=== PATIENT | female | born 1935 | race Caucasian/White ===

== ENCOUNTER 2023-04-01 13:00 | Emergency (ER) | payer OTHER, SELFPAY ==
[2023-04-01 13:01] VITALS: BP 158/113
[2023-04-01 13:14] VITALS: BP 155/59
[2023-04-01 14:00] VITALS: BP 142/68
--- NOTE | 2023-04-01 14:00 | ED.GENMED ---
History of Present Illness
General
Chief Complaint: Chest Pain
Source: patient
Exam Limitations: none
Time Seen by Provider: 04/01/23 13:35
Nursing documentation reviewed up to this point in time: agreed with
Travel History
Have you had any contact with someone who has COVID-19?: No
Do you have any symptoms of coronavirus? Fever > 100 degrees, chills, cough, shortness of breath, sore throat, loss of taste or smell, muscle aches, or headache?: No
History of Present Illness
History of Present Illness:
Patient is 87-year-old female who presents to the ER for evaluation. Patient reports she started with cough Fanta night and has been coughing since. She reports the cough was worse last night. She also has had pain to her anterior chest. She
denies any shortness of breath. She denies any fevers. She called her family doctor for evaluation but was sent here to the ER because she had chest pain. She has no cardiac history. She denies any radiation of pain. She reports her chest feels
sore and achy. She denies any arm pain. Denies any back.
Past History
Past History
ED Past Medical History: Hypercholesterolemia and Other (Diverticulitis)
ED Past Surgical History: Other (Kidney surgery)
Social History
Tobacco: Non-smoker
Alcohol: None
Drug: None
Personal:
Living: with family
Family History
Family History: Negative Diabetes, Hypertension or CAD
Review of Systems
Review of Systems
Allergies reviewed?: Yes
All Other Systems: ROS reviewed and negative except as documented in HPI and ROS
Constitutional: Reports no symptoms; Denies fever
Respiratory: Reports cough and trouble breathing
Cardiac: Reports chest pain (chest soreness ); Denies palpitations
ABD/GI: Reports no symptoms
: Reports no symptoms
Musculoskeletal: Reports no symptoms
Skin: Reports no symptoms
Neurological: Reports no symptoms
Psychiatric: Reports no symptoms
Phy Exam
General Physical Exam
General Presentation: no apparent distress
General age: appears stated age
General Skin: warm and dry
General Habitus: normal
General Mental: alert
General Hydration: appears well hydrated
Cardiovascular Exam
Cardiovascular Exam: regular rate/rhythm, no murmur and normal peripheral pulses
Pulmonary Exam
Pulmonary Exam: lungs clear, no respiratory distress and other (chest non tender )
Neurological Exam
Neurological Exam: alert and oriented x3
Musculoskeletal Exam
Musculoskeletal Exam: full ROM
Skin Exam
Skin Exam: normal color and warm/dry
Psychiatric Exam
Psychiatric Exam: normal mood/affect
Scores
Heart Score for Chest Pain Patients
STEMI patient?: Not applicable
Course
Orders/Labs/Results
Orders:
Orders
04/01/23 13:03
Electrocardiogram (*1) Urgent
Reason for Study: Chest Pain
EKG- Treatment ONCE
04/01/23 14:15
Cardiac Monitoring- Treatment ONCE
IV Insert/Care/Rem.- Treatment PRN
CR Chest - 2 Views Urgent
Comment:
Reason For Exam: cough/cp
04/01/23 14:23
COVID-19 Antigen Urgent
Source: Nasal Swab
Complete Blood Count/With Diff Urgent
Comprehensive Metabolic Panel Urgent
Troponin I Urgent
Influenza A+B Rapid Molecular Urgent
SYLVIA Source: Nasal Swab
Specimen Description:
Abnormal Lab Results
04/01/23
14:23
MCH 32.5 H pg
(27.0-31.0)
BUN 19 H mg/dl
(7-17)
Glucose 105 H mg/dl
(70-99)
Total Protein 6.1 L g/dl
(6.3-8.2)
02/01/24 14:23
04/01/23 14:23
Vital Signs
Initial and Last Documented VS:
Initial Vital Signs
Temp Pulse Resp BP Pulse Ox
99.0 F 65 18 158/113 95
04/01/23 13:01 04/01/23 13:01 04/01/23 13:01 04/01/23 13:01 04/01/23 13:01
Last Documented Vital Signs
Temp Pulse Resp BP Pulse Ox
99.0 F 59 15 105/64 95
04/01/23 13:01 04/01/23 15:00 04/01/23 15:00 04/01/23 15:00 04/01/23 15:00
MDM/Problems Addressed
Differential Diagnosis Includes:
Not limited to musculoskeletal chest pain, pneumonia, bronchitis, flu, COVID, less likely ACS
MDM/Problems Addressed:
Patient is afebrile female who presents for evaluation. Patient had a cough for the past several days and has had chest soreness with cough. She denies any shortness of breath. She has no cardiac history. She was sent for evaluation of chest
pain. Her lungs are clear she is nonhypoxic nontachypneic in no acute distress no acute findings on EKG normal cardiac troponin. Likely musculoskeletal soreness from cough. Patient is afebrile with normal white count negative COVID-negative flu
no acute findings on chest x-ray.
*Radiology
Radiology exam reviewed: radiology read reviewed
*Pulse Oximetry
Patient hypoxic: no
*Critical Care Note
Total Time (30-74mins, 75-104mins- exclusive of procedures): Not Applicable
ED Attending Note
-
Portions of this chart may have been created with voice recognition software.� Occasional wrong word or��sound alike� substitutions may have occurred due to the inherent limitations of voice recognition software.
Discharge Plan
Departure
Patient Disposition: Home (Routine Discharge)
Date of Disposition: 04/01/23
Time of Disposition: 16:00
Patient with high blood pressure during this ER visit?: Yes
Covid-19: Not Applicable
Discharge Problem:
Acute viral syndrome, Cough
Instructions: Cough, Adult (DC), Viral Syndrome (DC)
Prescriptions:
No Action
acyclovir 400 mg Tablet
400 mg PO BID
prednisolone acetate 1 % Drops,Suspension
1 drp BOTH EYES DAILY Qty: 0
escitalopram oxalate 10 mg Tablet
10 mg PO DAILY
brimonidine-timolol [Combigan] 0.2-0.5 % Drops
1 drp BOTH EYES BID Qty: 0
acetaminophen [acetaminophen] 325 mg tablet
650 mg PO Q4HPRN PRN (Reason: mild pain) Qty: 1 0RF
atorvastatin [Lipitor] 20 mg Tablet
20 mg PO QPM
calcium polycarbophil [FiberCon] 625 mg Tablet
626 mg PO BID
lutein 20 mg Capsule
20 mg PO DAILY
cholecalciferol (vitamin D3) [Vitamin D3] 25 mcg (1,000 unit) Tablet
25 mcg PO DAILY
Referrals:
Nan Yi DO [Family Provider] -
Activity Restrictions/Additional Instructions:
You may take Tylenol for pain as needed. Follow-up with your family doctor in the next several days and return if any worsening of symptoms
Interventions
Interventions:
*Risk Screen - Suicide Last Done: 04/01/23 13:01
*General Assessment Last Done: 04/01/23 13:01
*Neglect/Abuse Screening Last Done: 04/01/23 13:01
ED- Fall Risk Assessment Last Done: 04/01/23 14:20
*ED COVID-19 Vaccine History Last Done: 04/01/23 13:01
ED- Cardiac Assessment Last Done: 04/01/23 14:20
[2023-04-01 14:20] VITALS: BMI 25.6
[2023-04-01 14:40] LABS: % Basophils 0.6 % (0-2); % Eosinophils 1.8 % (0-6); % Immature Granulocytes 0.2 % (0-0.5); % Monocytes 7.1 % (1.7-9.3); % Neutrophils 66.3 % (42.2-75.2); Absolute Basophils 0.1 10^3/uL (0-0.2); Absolute Eosinophils 0.2 10^3/uL (0-0.7); Absolute Monocytes 0.6 10^3/uL (0.1-0.6); Absolute Neutrophils 5.4 10^3/uL (1.4-6.5); Hematocrit 39.4 % (37.0-47.0); Hemoglobin 13.9 g/dL (12.0-16.0); Mean Corp Hgb Conc. 35.3 g/dL (33.0-37.0); Mean Corpuscular Hgb 32.5 pg (27.0-31.0); Mean Corpuscular Volume 92.1 fL (81.0-99.0); Mean Platelet Volume 9.1 fL (7.4-10.4); Nucleated Red Blood Cells % 0 %; Platelet Count 173 10^3/uL (130-400); Red Blood Cell Count 4.28 10^6/uL (4.20-5.40); Red Cell Dist. Width 12.6 % (11.5-14.5); White Blood Cell Count 8.2 10^3/uL (4.8-10.8)
[2023-04-01 14:51] LABS: ALT (SGPT) 29 U/L (0-35); AST (SGOT) 27 U/L (14-36); Albumin 3.9 g/dl (3.5-5.0); Alkaline Phosphatase 85 U/L (38-126); Blood Urea Nitrogen 19 mg/dl (7-17); Carbon Dioxide 25 mmol/L (22-30); Chloride 107 mmol/L (98-107); Estimated Creatinine Clearance 55 ml/min; Glucose 105 mg/dl (70-99); Potassium 4.2 mmol/L (3.5-5.1); Sodium 139 mmol/L (135-145); Total Bilirubin 1.1 mg/dl (0.2-1.3); Total Protein 6.1 g/dl (6.3-8.2); eGFR > 60.00
[2023-04-01 14:59] LABS: COVID-19 Antigen Negative (Negative)
[2023-04-01 15:00] VITALS: BP 105/64
[2023-04-01 15:03] LABS: Troponin I < 0.012 ng/ml
[2023-04-01 16:17] VITALS: BP 99/56
== END 2023-04-01 16:21 | disposition home or self-care (01) ==
LOC: EMR 13:00
PROVIDERS: Nurse Practitioner; EMERGENCY PHYSICIAN Student in an Organized Health Care Education/Training Program; FAMILY PHYSICIAN Family Medicine
DX: B34.9 Viral infection, unspecified (principal); R05.9 Cough, unspecified; Z11.52 Encounter for screening for COVID-19; R03.0 Elevated blood-pressure reading, without diagnosis of hypertension; E78.00 Pure hypercholesterolemia, unspecified; K57.92 Diverticulitis of intestine, part unspecified, without perforation or abscess without bleeding; K21.9 Gastro-esophageal reflux disease without esophagitis; F41.9 Anxiety disorder, unspecified; H40.9 Unspecified glaucoma; M19.90 Unspecified osteoarthritis, unspecified site; Z88.8 Allergy status to other drugs, medicaments and biological substances
CPT/HCPCS: 99283; 71046; 80053; 84484; 85025; 87502; 87811; 93005

== ENCOUNTER → 2024-06-07 12:48 | Outpatient (REF) | payer OTHER, SELFPAY | LOC: HWWDC 12:48 | PROVIDERS: ATTENDING PHYSICIAN Family Medicine | DX: Z12.31 Encounter for screening mammogram for malignant neoplasm of breast (principal) | CPT/HCPCS: 77063; 77067 ==

== ENCOUNTER → 2024-11-24 17:58 | Outpatient (REF) | payer OTHER, SELFPAY | LOC: MRI 17:58 | PROVIDERS: ATTENDING PHYSICIAN Family Medicine | DX: G44.52 New daily persistent headache (NDPH) (principal) | CPT/HCPCS: 70551 ==